=== PATIENT | female | born 2005 | race Caucasian/White ===

== ENCOUNTER 2024-01-03 19:06 | Inpatient (IN) ==
[2024-01-03 20:03] LABS: Basophils # (auto) 0.06 K/uL (0.00-0.20); Basophils % (auto) 0.7 %; Eosinophils # (auto) 0.36 K/uL (0.00-0.50); Eosinophils % (auto) 4.2 %; Hematocrit (blood only) 42.7 % (37.0-47.0); Hemoglobin 14.2 g/dl (12.0-16.0); Immature Granulocytes # (auto) 0.02 K/uL (0.01-0.20); Immature Granulocytes % (auto) 0.2 %; Lymphocytes # (auto) 3.14 K/uL (1.20-3.40); Lymphocytes % (auto) 36.7 %; Mean Corpuscular Hemoglobin 27.5 pg (25.0-34.0); Mean Corpuscular Hgb Conc 33.3 g/dL (32.0-36.0); Mean Corpuscular Volume 82.8 fL (80.0-100.0); Monocytes # (auto) 0.52 K/uL (0.11-0.59); Monocytes % (auto) 6.1 %; Neutrophils # (auto) 4.45 K/uL (1.40-6.50); Neutrophils % (auto) 52.1 %; Platelet Count 350 K/uL (130-400); RDW Standard Deviation 42.5 fL (36.4-46.3); Red Blood Count 5.16 M/uL (4.20-5.40); White Blood Count 8.55 K/ul (4.8-10.8)
[2024-01-03 20:13] LABS: Bilirubin,Total 0.3 mg/dl (0.2-1.0); Calcium 9.3 mg/dl (8.6-10.3); Potassium 3.8 mmol/L (3.5-5.1)
[2024-01-03 20:19] LABS: Albumin Globulin Ratio 1.5 (0.9-2); BUN Creatinine Ratio 17.9 (10-20); Creatinine Clr Calc Pharmacy 73.4 ml/min; Globulin 2.7 gm/dl (2.5-4.0); Total Protein 6.7 gm/dl (6.0-8.3)
[2024-01-03 20:32] LABS: Thyroid Stimulating Hormone 2.645 uIu/ml (0.300-4.500)
[2024-01-03 20:38] LABS: Acetaminophen < 3 ug/ml (10-30); Salicylate < 3.0 mg/dl (3.0-30)
[2024-01-03 22:32] LABS: Appearance Urine Clear (Clear); Bacteria Urine Automated 2+ (None Seen); Bilirubin Urine Negative (Negative); Blood Urine Negative (Negative); Cast Urine Automated 0-2 /lpf (0-2); Color Urine Yellow; Glucose Urine UA Negative (Negative); Ketones Urine Trace (Negative); Leukocyte Esterase Urine 1+ (Negative); Nitrite Urine Negative (Negative); Protein Urine Negative (Negative); RBC Urine Automated 0-2 /hpf (0-2); Specific Gravity Urine 1.023 (1.000-1.030); Urobilinogen Urine Negative (Negative); pH Urine 5.5 (4.5-7.5)
[2024-01-03 22:59] LABS: Amphetamines+Metham, Urine Pos (Neg); Barbiturates, Urine Neg (Neg); Benzodiazepine, Urine Neg (Neg); Cocaine, Urine Neg (Neg); Fentanyl, Urine Neg (Neg); MDMA (Ecstacy), Urine Neg (Neg); Marijuana, Urine Neg (Neg); Methadone, Urine Neg (Neg); Opiate, Urine Neg (Neg); Phencyclidine, Urine Neg (Neg)
[2024-01-04 01:05] LABS: Pregnancy Test, Urine Negative (Negative)
--- NOTE | 2024-01-04 01:07 | Emergency Department Note ---
Impression & Plan Suicidal ideation ED Provider Note CHIEF COMPLAINT: Suicidal ideation HISTORY OF PRESENT ILLNESS: This 18-year-old female patient with past medical history of learning disability presents to the emergency department with complaints of suicidal ideation. The patient apparently made multiple statements this evening to her mother and the optical worker. Patient is a college student at [employer]. She threatened suicide with a knife. When asked if she would be willing to come inpatient she told the optical worker that she would "just kill herself." She requested to go home to her "dorm room where (she) could and nobody would save her." Patient is currently denying any suicidal ideation. She is here under 302. She is apparently followed by psychiatric services at [employer]. REVIEW OF SYSTEMS: A review of systems was performed with positives and pertinent negatives listed in the history of present illness. 10 systems were reviewed and are otherwise negative. ALLERGIES: see below MEDICATIONS: see below PMH: see below SOCIAL HISTORY: see below DDx: Medication effect, mood disorder, substance abuse, situational stressors among others. PHYSICAL EXAM: Vital signs reviewed. General: Well-appearing 18-year-old female, in no significant distress. HEENT: No scleral icterus, PERRLA, neck supple. Moist mucous membranes Cardiovascular: Regular rate and rhythm, no extra sounds. Pulmonary: Clear to auscultation bilaterally, normal work of breathing. Abdomen: Soft, nontender, nondistended, positive bowel sounds. Musculoskeletal: Atraumatic, no peripheral edema. Psychiatric: Denies SI, denies HI Neurologic: Patient awake alert and oriented x 3, speech is clear Skin: Warm, dry, no rash EMERGENCY DEPARTMENT COURSE/MDM: This patient was evaluated and appeared to be in no significant distress. Patient was medically cleared by laboratory work. 302 was signed after the patient declined to sign in voluntarily. Patient was evaluated by 3 S. and accepted for inpatient care. DISPOSITION: Admission Past Med/Surg History Problem List (Updated 01/04/24 @ 01:18 by Emma Morales MD) Suicidal ideation (Acute) ADHD (attention deficit hyperactivity disorder) Mood disorder Social History Smoking Status: Never smoker Preferred Language: Tajik Feels Safe at Home: Yes Gender Identity: Female Results & Data (ED) Vital Signs Vital Signs - 24 hr 01/03/24 19:09 01/03/24 19:45 Temperature 36.8 C Temperature Source Oral Pulse Rate 90 Pulse Rate [Right Brachial] 82 Pulse Rhythm [Right Brachial] Regular Pulse Strength [Right Brachial] Normal Respiratory Rate 15 18 Respiratory Effort / Characteristics Non-Labored Spontaneous Non-Labored Respiratory Depth Normal Normal Respiratory Pattern Regular Regular Blood Pressure 131/87 Blood Pressure [Right Arm] 124/77 Blood Pressure Mean 101 Blood Pressure Mean [Right Arm] 92 Blood Pressure Position [Right Arm] Sitting Pulse Oximetry 98 98 Oxygen Delivery Method Room Air Room Air Sepsis Recent Fever Within 48 Hours No Sepsis New/Unexplained Change in Mental Status N/A Sepsis Action Taken by Nursing No Action Required Home Medications Current Medication List: was personally reviewed by me Laboratory Data Attestation: I reviewed the patient's lab results. 01/03/24 19:42 01/03/24 19:42 Lab Results 01/03/24 01/03/24 Range/Units 19:42 21:48 WBC 8.55 (4.8-10.8) K/ul RBC 5.16 (4.20-5.40) M/uL Hgb 14.2 (12.0-16.0) g/dl Hct 42.7 (37.0-47.0) % MCV 82.8 (80.0-100.0) fL MCH 27.5 (25.0-34.0) pg MCHC 33.3 (32.0-36.0) g/dL RDW Std Deviation 42.5 (36.4-46.3) fL RDW Coeff of Nixon 14.0 (11.5-14.5) % Plt Count 350 (130-400) K/uL MPV 9.0 L (9.4-12.4) fL Immature Gran % (Auto) 0.2 % Neut % (Auto) 52.1 % Lymph % (Auto) 36.7 % Morrill % (Auto) 6.1 % Eos % (Auto) 4.2 % Baso % (Auto) 0.7 % Neut # (Auto) 4.45 (1.40-6.50) K/uL Lymph # (Auto) 3.14 (1.20-3.40) K/uL Morrill # (Auto) 0.52 (0.11-0.59) K/uL Eos # (Auto) 0.36 (0.00-0.50) K/uL Baso # (Auto) 0.06 (0.00-0.20) K/uL Immature Gran # (Auto) 0.02 (0.01-0.20) K/uL Sodium 139 (136-145) mmol/L Potassium 3.8 (3.5-5.1) mmol/L Chloride 107 (98-107) mmol/L Carbon Dioxide 24 (21-32) mmol/L Anion Gap 8 (3-11) BUN 15 (6-23) mg/dl Creatinine 0.84 (0.6-1.2) mg/dl Est Cr Clr Drug Dosing 73.4 ml/min eGFR 101.96 BUN/Creatinine Ratio 17.9 (10-20) Glucose 81 (70-99(Fasting)) mg/dl Calcium 9.3 (8.6-10.3) mg/dl Total Bilirubin 0.3 (0.2-1.0) mg/dl AST 17 (13-39) U/L ALT 14 (7-52) U/L Alkaline Phosphatase 63 (34-104) U/L Total Protein 6.7 (6.0-8.3) gm/dl Albumin 4.0 (3.4-5.0) gm/dl Globulin 2.7 (2.5-4.0) gm/dl Albumin/Globulin Ratio 1.5 (0.9-2) TSH 2.645 (0.300-4.500) uIu/ml Urine Color Yellow Urine Appearance Clear (Clear) Urine pH 5.5 (4.5-7.5) Ur Specific [place] 1.023 (1.000-1.030) Urine Protein Negative (Negative) Urine Glucose (UA) Negative (Negative) Urine Ketones Trace H (Negative) Urine Blood Negative (Negative) Urine Nitrite Negative (Negative) Urine Bilirubin Negative (Negative) Urine Urobilinogen Negative (Negative) Ur Leukocyte Esterase 1+ H (Negative) Urine WBC (Auto) 11-20 H (0-5) /hpf Urine RBC (Auto) 0-2 (0-2) /hpf U Hyaline Cast (Auto) 0-2 (0-2) /lpf U Epithel Cells (Auto) 6-10 H (0-2) /hpf Urine Bacteria (Auto) 2+ H (None Seen) Salicylates < 3.0 L (3.0-30) mg/dl Urine Opiates Screen Neg (Neg) Ur Methadone, Qual Neg (Neg) Urine Fentanyl Screen Neg (Neg) Acetaminophen < 3 L (10-30) ug/ml Urine Barbiturates Neg (Neg) Ur Phencyclidine (PCP) Neg (Neg) U Amphetamin/Meth Scrn Pos H (Neg) MDMA (Ecstasy) Screen Neg (Neg) U Benzodiazepines Scrn Neg (Neg) Ur Cocaine Metabolite Neg (Neg) U Marijuana (THC) Screen Neg (Neg) Ethyl Alcohol mg/dL < 10.0 (<10.0) mg/dl SARS-CoV-2 (PCR) NEGATIVE (Negative) Discharge Plan Visit Data Chief Complaint: Mental Health Evaluation Stated Complaint: 302 ED Provider: Emma Morales Discharge Problem: Suicidal ideation Forms Stand Alone Forms: [facility], Suicide Prevention Resources Prescriptions Prescriptions: No Action norgestimate-ethinyl estradiol [Sprintec (28)] 0.25-35 mg-mcg tablet 1 tab PO DAILY dextroamphetamine-amphetamine 20 mg capsule,extended release 24hr 20 mg PO DAILY escitalopram oxalate 20 mg tablet 20 mg PO DAILY Referrals Referrals: PCP,NO [Primary Care Provider] -
[2024-01-04] MEDS ORDERED: MAGNESIUM HYDROXIDE SUSP 30 ML UDC PO PRN (01:48)
[2024-01-04] MEDS ORDERED: SODIUM CHLORIDE 0.65% NA SOLN 45 ML (OCEAN) PRN (01:48)
[2024-01-04] MEDS ORDERED: BISMUTH SUBSALICYLATE 262 MG CHEW PO PRN (01:48)
[2024-01-04] MEDS ORDERED: ACETAMINOPHEN 325 MG TAB PO PRN (01:48)
[2024-01-04] MEDS ORDERED: hydrOXYzine HCl 25 MG TAB PO PRN ×2 (01:48)
[2024-01-04] MEDS ORDERED: ALUMINUM/MAGNESIUM SUSP 30 ML UDC PO PRN (01:48)
[2024-01-04] MEDS: ESCITALOPRAM OXALATE 10 MG TAB PO SCH (08:32)
--- NOTE | 2024-01-04 14:07 | History & Physical ---
Date of Service January 04, 2024 Impression / Recommendations Impression JYOTI MONTANA is a domiciled with roommate, single, student 18-year-old female history of ADHD, anxiety who presents after her mother brought her to crisis support for grabbing a knife and threatening to commit suicide. She was admitted on 01/04/24 01:34 on a 302 involuntary commitment for suicidal ideation and gesture. Presentation consistent with generalized anxiety disorder with possible panic attacks, social anxiety disorder, cluster B personality disorder, and ADHD. She presents recent suicidal ideation and gesture likely as a response of distressing anxiety and poor coping skills. She would likely benefit with distress tolerance skills and continued adherence to recently initiated antidepressant medication. She presents a lack of self-esteem impacting social functioning and would benefit from engagement in cognitive behavioral therapy to challenge thought distortions. Labs reviewed: CBC, CMP, TSH unremarkable. UDS positive for amphetamines and patient is prescribed Adderall for ADHD. Blood alcohol undetectable on admission. UA positive for leukocyte esterase and WBCs however patient denies UTI symptoms and recommended increase hydration. Given recent suicidal ideation, safety concerns will continue to monitor mood and behaviors. Recommend to continue home Lexapro and to hold home Adderall which can be resumed after discharge. Patient provided handout of automatic thoughts and will clarify cluster B symptomology. Overall, I spent a total of 70 minutes with this case including review of chart records, nursing report, review of lab work, direct evaluation of the patient at bedside, counseling the patient, multidisciplinary team meeting, orders, gathering collateral from family and documentation in the electronic health record. 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 The patient will participate in group, recreational, and milieu therapies and will be offered additional individual and family sessions as clinically appropriate. -Continue home escitalopram 20mg daily -Hold home Adderall IR 20mg daily -Borderline Personality Screener Inventory Assets Strengths: social supports, intelligent Needs: improved self esteem, improved coping skills Suicide Risk Level Suicide Risk Level: Moderate (q15 min suicide checks) Risk Factors Assessment Male: No : No Do You Have Access To A Gun?: No Health Problems: Yes Mental Health Diagnoses: Yes Substance Use Disorders: No Previous Attempt: No Family History of Suicide: No Previous Psychiatric Hospitalization: No Hopelessness: No Protective Factors Assessment Moravian Beliefs: No : No Responsible for Young Children: No Employed: No Stable Relationships: Yes Supportive Family: Yes Good Rapport with Provider: Yes Absence of Any Risk Factors Above: No Psychiatric History Identifying Data JYOTI MONTANA is a domiciled with roommate, single, student 18-year-old female history of ADHD, anxiety who presents after her mother brought her to crisis support for grabbing a knife and threatening to commit suicide. She was admitted on 01/04/24 01:34 on a 302 involuntary commitment for suicidal ideation and gesture. Chief Complaint "Be more positive when things get bad" History of Present Illness Patient reports roommate and RA have been yelling at her. They share a bathroom and she did not clean it and that her roommate is a germ phobia. Also reports stressors of leaving home and being isolated and this has been difficult. Says that she complains of poor self-esteem and cannot express herself to her mother. Mother often brings her back home while she wants to remain independent. Says recently her anxiety has worsened and that she got a knife to get her brother's attention. She denies intention to use the knife. Reports anxiety has been worsening and has had intermittent SI in the past. She reports worries about different topics. When she becomes anxious she has episodes of her palm sweating, shortness of breath, increased heart rate, clenched jaw and fist and mental feelings of being powerless. Has been occurring 1-2 times daily and has been worse after COVID due to isolation and going back to in person schooling. Endorses fair energy, sleep. Endorses depressed mood, change in appetite, excessive guilt, increased fatigue, concentration problems, increased impulsivity, increased irritability, avoidance of public places, and excessive worry. Reports poor concentration due to difficulties with motivation. Feels hopeful for the future and is future oriented to get back to her class work. She denies current suicidal ideation. Reports future goals of improved mood and less extreme anxiety. Denies fears of abandonment. Denies problems in relationships. Complains of feelings of emptiness and trouble with identity formation. Denies having recurrent nightmares. Often worried about self judgment in public makes comparisons about her physical appearance to others. Reports having low self- esteem since teenage years due to what she seen on TV. Denies judgment from family or peers growing up. Grew up in [place]. Parents 8 years of age denies having negative memories about this. Feels both family and mother are supportive. He denies emotional, physical, sexual abuse. Started Lexapro and Adderall 1 month ago and Lexapro dose was recently increased from 10 mg to 20 mg yesterday. Reports her anxiety and concentration have improved since being on medication. She denies having dysuria or pain on urination. Reports having visual processing issues where she has conflicting images on each eye and this causes difficulties with spatial awareness, trouble reading people's affect. Uses verbal learning tools to cope. Social history: [employer] freshman. Lives in dorms with roommate. Mother lives in [place]. Follow-up through [facility]. Has not started counseling yet but has appointment scheduled. Born prematurely at 25 weeks. Last menstrual period 1 week ago and currently on control. Exercises 2 times a week doing yoga. History of depression and anxiety in the father; unknown treatment. Grew up in [place]. Not sexually active and unsure sexual orientation. No legal problems. Past Psychiatric History Current Psychiatric Diagnosis: ADHD, Depression, Anxiety Do You Have Access To A Gun?: No History of Previous Suicide Attempt: No Allergies Allergy/AdvReac Type Severity Reaction Status Date / Time No Known Allergies Allergy Unverified 01/04/24 01:50 Home Medications Medication Instructions Recorded Confirmed Type dextroamphetamine-amphetamine ER 20 mg PO DAILY 01/04/24 01/04/24 History 20 mg 24hr capsule,extend release escitalopram oxalate 20 mg tablet 20 mg PO DAILY 01/04/24 01/04/24 History norgestimate 0.25 mg-ethinyl 1 tab PO DAILY 01/04/24 01/04/24 History estradiol 35 mcg tablet (Sprintec (28)) Family History Family History of: Depression and Anxiety Alcohol History Hx of Alcohol Use Over the Past 12 Months: No AUDIT Total Score: 0 Smoking Use Have You Smoked or Used Tobacco Products in the Last 30 Days: No Smoking Status: Never smoker Substance History Hx of Prescription Med Misuse Over the Past 12 Months: No Hx of Over the Counter Med Misuse Over the Past 12 Months: No Hx of Inhalent Misuse Over the Past 12 Months: No Hx of Organic Substance Use Over the Past 12 Months: No Hx of Illegal Substances/Street Drug Use Over Past 12 Months: No Problems as a Result of Past Substance Use: None Identified Personal History Living Arrangements: Apartment Highest Grade Completed: College Highest Grade Completed Comment: Currently Freshmen at [employer] Marital Status: Single Number Of Children: 0 Beliefs That Will Affect Care: None Patient History Social History Smoking Status: Never smoker Preferred Language: Omani Communication Ability: Effective Certified Prosthetist/Orthotist Required: No Beliefs That Will Affect Care: None Feels Safe at Home: Yes Gender Identity: Female Assistive Devices: Glasses Physical Exam Mental Examination: Appearance: Well Groomed Eye Contact: Fleeting Contact Motor Behavior: Unremarkable Speech: Delayed Mood: Anxious Affect: Constricted and Withdrawn Thought Process: Intact and Goal Oriented Hallucinations: None Insight: Poor (to limited) Judgement: Poor Vital Signs (Past 24 Hours): Last Vital Signs Temp 36.8 C 01/04/24 06:30 Pulse 105 H 01/04/24 06:30 Resp 16 01/04/24 06:30 BP 105/72 01/04/24 06:30 Pulse Ox 99 01/04/24 02:12 O2 Del Method Room Air 01/04/24 02:12 Exam Statement: A physical exam was performed in the ED for the purposes of medical clearance. I accept that physical as correct and adequate for the purposes of the inpatient physical exam. Results & Data ([facility]) Laboratory Results Laboratory Results - last 24 hr 01/03/24 01/03/24 19:42 21:48 WBC 8.55 RBC 5.16 Hgb 14.2 Hct 42.7 MCV 82.8 MCH 27.5 MCHC 33.3 RDW Std Deviation 42.5 RDW Coeff of Nixon 14.0 Plt Count 350 MPV 9.0 L Immature Gran % (Auto) 0.2 Neut % (Auto) 52.1 Lymph % (Auto) 36.7 Johnson % (Auto) 6.1 Eos % (Auto) 4.2 Baso % (Auto) 0.7 Neut # (Auto) 4.45 Lymph # (Auto) 3.14 Johnson # (Auto) 0.52 Eos # (Auto) 0.36 Baso # (Auto) 0.06 Immature Gran # (Auto) 0.02 Sodium 139 Potassium 3.8 Chloride 107 Carbon Dioxide 24 Anion Gap 8 BUN 15 Creatinine 0.84 Est Cr Clr Drug Dosing 73.4 eGFR 101.96 BUN/Creatinine Ratio 17.9 Glucose 81 Calcium 9.3 Total Bilirubin 0.3 AST 17 ALT 14 Alkaline Phosphatase 63 Total Protein 6.7 Albumin 4.0 Globulin 2.7 Albumin/Globulin Ratio 1.5 TSH 2.645 Urine Color Yellow Urine Appearance Clear Urine pH 5.5 Ur Specific [place] 1.023 Urine Protein Negative Urine Glucose (UA) Negative Urine Ketones Trace H Urine Blood Negative Urine Nitrite Negative Urine Bilirubin Negative Urine Urobilinogen Negative Ur Leukocyte Esterase 1+ H Urine WBC (Auto) 11-20 H Urine RBC (Auto) 0-2 U Hyaline Cast (Auto) 0-2 U Epithel Cells (Auto) 6-10 H Urine Bacteria (Auto) 2+ H Urine Test Negative Salicylates < 3.0 L Urine Opiates Screen Neg Ur Methadone, Qual Neg Urine Fentanyl Screen Neg Acetaminophen < 3 L Urine Barbiturates Neg Ur Phencyclidine (PCP) Neg U Amphetamines Confirm Pending U Amphetamin/Meth Scrn Pos H U Methamphetamin Confrm Pending MDMA (Ecstasy) Screen Neg U Benzodiazepines Scrn Neg Ur Cocaine Metabolite Neg U Marijuana (THC) Screen Neg Drug Screen Comment Pending Ethyl Alcohol mg/dL < 10.0 SARS-CoV-2 (PCR) NEGATIVE Current Inpatient Medications Current Inpatient Medications: Current Inpatient Medications Acetaminophen (Acetaminophen 325 Mg Tab) 650 mg PO Q4H PRN PRN Reason: Headache or Minor Fever Stop: 02/03/24 01:47 Al Hydrox/Mg Hydrox/Simethicone (Aluminum/Magnesium Susp 30 Ml Udc) 30 ml PO Q4H PRN PRN Reason: GI Upset Stop: 02/03/24 01:47 Bismuth Subsalicylate (Bismuth Subsalicylate 262 Mg Chew) 2 tab PO Q30M PRN PRN Reason: Loose Stool/Diarrhea Stop: 02/03/24 01:47 Escitalopram Oxalate (Escitalopram Oxalate 20 Mg Tab) 20 mg PO QAM ANGELA Stop: 02/04/24 08:59 Hydroxyzine HCl (Hydroxyzine Hcl 25 Mg Tab) 50 mg PO HSZ PRN PRN Reason: Insomnia Stop: 02/03/24 01:47 Hydroxyzine HCl (Hydroxyzine Hcl 25 Mg Tab) 25 mg PO Q4H PRN PRN Reason: Anxiety Stop: 02/03/24 01:47 Magnesium Hydroxide (Magnesium Hydroxide Susp 30 Ml Udc) 30 ml PO DAILY PRN PRN Reason: Constipation Stop: 02/03/24 01:47 Sodium Chloride (Sodium Chloride 0.65% Na Soln 45 Ml ([place])) 1 - 2 sprays NA PRN PRN PRN Reason: Nasal Dryness/Congestion Stop: 02/03/24 01:47
[2024-01-04] MEDS: NORGESTIMATE/ETHINYL ESTRAD 0.25/0.035MG DSPK PO SCH (16:48)
[2024-01-05] MEDS: ESCITALOPRAM OXALATE 20 MG TAB PO SCH (08:46)
--- NOTE | 2024-01-05 10:52 | Psychiatric Progress Note ---
Date of Service January 05, 2024 Impression / Recommendations Impression JYOTI MONTANA is a domiciled with roommate, single, student 18-year-old female history of ADHD, anxiety who presents after her mother brought her to crisis support for grabbing a knife and threatening to commit suicide. She was admitted on 01/04/24 01:34 on a 302 involuntary commitment for suicidal ideation and gesture. A: Patient presents stable mood and presents a history of negative core beliefs with poor self esteem and automatic negative thinking which can be addressed in outpatient counseling. Has been tolerating her home medications well. She may benefit from an intensive outpatient program. Patient is goal directed towards discharge. Overall, I spent a total of 30 minutes with this case including review of chart records, nursing report, review of lab work, direct evaluation of the patient at bedside, counseling the patient, multidisciplinary team meeting, orders, and documentation in the electronic health record. 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 01/04/2024: The patient was admitted to the [facility] ([facility]) on q15 min checks (behavioral with suicide precautions) for safety. The patient will participate in group, recreational, and milieu therapies and will be offered additional individual and family sessions as clinically appropriate. -Continue home escitalopram 20mg daily -Hold home Adderall IR 20mg daily -Borderline Personality Screener Inventory Assets Strengths: social supports, intelligent Needs: improved self esteem, improved coping skills Suicide Risk Level Suicide Risk Level: Moderate (q15 min suicide checks) Risk Factors Assessment Male: No : No Do You Have Access To A Gun?: No Health Problems: Yes Mental Health Diagnoses: Yes Substance Use Disorders: No Previous Attempt: No Family History of Suicide: No Previous Psychiatric Hospitalization: No Hopelessness: No Protective Factors Assessment Episcopalian Beliefs: No : No Responsible for Young Children: No Employed: No Stable Relationships: Yes Supportive Family: Yes Good Rapport with Provider: Yes Absence of Any Risk Factors Above: No Interval History Identifying Information JYOTI MONTANA is a domiciled with roommate, single, student 18-year-old female history of ADHD, anxiety who presents after her mother brought her to crisis support for grabbing a knife and threatening to commit suicide. She was admitted on 01/04/24 01:34 on a 302 involuntary commitment for suicidal ideation and gesture. Chief Complaint "Good" Review of Systems Sleep Information Total Hours of Sleep: 7.30 Sleep Comments: No HS medications Meal Information Percent Meal Consumed - Breakfast: 100 Percent Meal Consumed - Lunch: 100 Percent Meal Consumed - Dinner: 90 Subjective Subjective Patient was seen & assessed and interval progress reviewed with treatment team nursing and social work Patient rates mood 9 out of 10 and feels optimistic. Says she slept well. Considering taking the semester off and "focusing on therapy". She denies SI. She reports having trouble with relationships with mother, problems with identity, making desperate efforts to avoid feeling abandoned, some dissociation, and extreme moodiness; all of this began after recent incident with her roommate at school who was not present before. Reports chronic feelings of lack of identity and distrust from other people due to believing they are secretly judging her. Reports history of poor self-esteem. Endorses automatic negative thoughts such as all or none thinking, personalizing often blaming self for other people's feelings and mood, emotional reasoning, mind reading often believing others are judging her. She was counseled about the importance of CBT and distress tolerance skills for improved self-esteem and coping with anxiety respectively. Physical Exam Mental Examination Appearance: Well Groomed Eye Contact: Fleeting Contact Motor Behavior: Unremarkable Speech: Delayed Mood: Anxious Affect: Constricted and Withdrawn Thought Process: Intact and Goal Oriented Hallucinations: None Insight: Poor (to limited) Judgement: Poor Vital Signs (Past 24 Hours) Last Vital Signs Temp 36.7 C 01/05/24 06:39 Pulse 112 H 01/05/24 06:39 Resp 16 01/05/24 06:39 BP 115/84 01/05/24 06:39 Pulse Ox 99 01/04/24 02:12 O2 Del Method Room Air 01/04/24 02:12 Results & Data ([facility]) Current Inpatient Medications Current Inpatient Medications: Current Inpatient Medications Acetaminophen (Acetaminophen 325 Mg Tab) 650 mg PO Q4H PRN PRN Reason: Headache or Minor Fever Stop: 02/03/24 01:47 Al Hydrox/Mg Hydrox/Simethicone (Aluminum/Magnesium Susp 30 Ml Udc) 30 ml PO Q4H PRN PRN Reason: GI Upset Stop: 02/03/24 01:47 Bismuth Subsalicylate (Bismuth Subsalicylate 262 Mg Chew) 2 tab PO Q30M PRN PRN Reason: Loose Stool/Diarrhea Stop: 02/03/24 01:47 Escitalopram Oxalate (Escitalopram Oxalate 20 Mg Tab) 20 mg PO QAM ANGELA Stop: 02/04/24 08:59 Last Admin: 01/05/24 08:46 Dose: 20 mg Hydroxyzine HCl (Hydroxyzine Hcl 25 Mg Tab) 50 mg PO HSZ PRN PRN Reason: Insomnia Stop: 02/03/24 01:47 Hydroxyzine HCl (Hydroxyzine Hcl 25 Mg Tab) 25 mg PO Q4H PRN PRN Reason: Anxiety Stop: 02/03/24 01:47 Magnesium Hydroxide (Magnesium Hydroxide Susp 30 Ml Udc) 30 ml PO DAILY PRN PRN Reason: Constipation Stop: 02/03/24 01:47 Norgestimate (Norgestimate/Ethinyl Estrad 0.25/0.035mg Dspk) 1 tab PO DAILY ANGELA; Protocol Stop: 02/03/24 15:14 Last Admin: 01/05/24 08:47 Dose: 1 tab Sodium Chloride (Sodium Chloride 0.65% Na Soln 45 Ml (Spink)) 1 - 2 sprays NA PRN PRN PRN Reason: Nasal Dryness/Congestion Stop: 02/03/24 01:47 Mental Health & Subst Abuse Tx Psychiatrist Name of Psychiatrist: Dr. Lopez @ [facility] Psychiatrist's Date Of Appointment With Psychiatric Provider: 01/27/24 Time of Appointment with Psychiatrist: 1:30pm Therapist Name of Therapist: Anu Soler at [facility] Therapist's Date of Therapist Appointment: 01/07/24 Time of Therapist Appointment: 11:00am Thread Checker Name of Thread Checker: Shi Gaitan Case Management Appointment Comment: Intake scheduled for 01/05 Post Discharge Appointments Primary Care Physician Name Of Family Doctor/PCP: Doctor in [place]
--- NOTE | 2024-01-06 09:13 | Discharge Summary ---
Date of Service January 06, 2024 History of Present Illness Patient reports roommate and RA have been yelling at her. They share a bathroom and she did not clean it and that her roommate is a germ phobia. Also reports stressors of leaving home and being isolated and this has been difficult. Says that she complains of poor self-esteem and cannot express herself to her mother. Mother often brings her back home while she wants to remain independent. Says recently her anxiety has worsened and that she got a knife to get her brother's attention. She denies intention to use the knife. Reports anxiety has been worsening and has had intermittent SI in the past. She reports worries about different topics. When she becomes anxious she has episodes of her palm sweating, shortness of breath, increased heart rate, clenched jaw and fist and mental feelings of being powerless. Has been occurring 1-2 times daily and has been worse after COVID due to isolation and going back to in person schooling. Endorses fair energy, sleep. Endorses depressed mood, change in appetite, excessive guilt, increased fatigue, concentration problems, increased impulsivity, increased irritability, avoidance of public places, and excessive worry. Reports poor concentration due to difficulties with motivation. Feels hopeful for the future and is future oriented to get back to her class work. She denies current suicidal ideation. Reports future goals of improved mood and less extreme anxiety. Denies fears of abandonment. Denies problems in relationships. Complains of feelings of emptiness and trouble with identity formation. Denies having recurrent nightmares. Often worried about self judgment in public makes comparisons about her physical appearance to others. Reports having low self- esteem since teenage years due to what she seen on TV. Denies judgment from family or peers growing up. Grew up in [place]. Parents 8 years of age denies having negative memories about this. Feels both family and mother are supportive. He denies emotional, physical, sexual abuse. Started Lexapro and Adderall 1 month ago and Lexapro dose was recently increased from 10 mg to 20 mg yesterday. Reports her anxiety and concentration have improved since being on medication. She denies having dysuria or pain on urination. Reports having visual processing issues where she has conflicting images on each eye and this causes difficulties with spatial awareness, trouble reading people's affect. Uses verbal learning tools to cope. Social history: [employer] freshman. Lives in dorms with roommate. Mother lives in [place]. Follow-up through [facility]. Has not started counseling yet but has appointment scheduled. Born prematurely at 25 weeks. Last menstrual period 1 week ago and currently on control. Exercises 2 times a week doing yoga. History of depression and anxiety in the father; unknown treatment. Grew up in [place]. Not sexually active and unsure sexual orientation. No legal problems. Physical Exam Mental Examination Appearance: Well Groomed Eye Contact: Fleeting Contact (visual processing problem) Motor Behavior: Unremarkable Speech: Delayed Mood: Euthymic and Calm Affect: Appropriate and Congruent Thought Process: Intact and Goal Oriented Hallucinations: None Insight: Poor (to limited) Judgement: Fair (to limited) Vital Signs (Past 24 Hours) Last Vital Signs Temp 36.6 C 01/06/24 06:37 Pulse 144 H 01/06/24 06:38 Resp 16 01/06/24 06:37 BP 101/65 01/06/24 06:38 Pulse Ox 99 01/04/24 02:12 O2 Del Method Room Air 01/04/24 02:12 Principal Diagnosis Generalized anxiety disorder with panic attacks: Psychiatric Data See daily stay summary. In short, safety was maintained and the patient was cooperative with care. Medication changes included continuing home Escitalopram 20mg (recently inc outpatient) and they tolerated this well. A family session was decline and safety plan was completed prior to discharge. Discussed care plan with parents and patient at length. Recommended IOP for discharge for distress tolerance skills, social skills training, assertiveness training, CBT to address cognitive distortions and poor self esteem. Patient denied SI through hospitalization and presented stable behavior. Goal directed towards returning to school work. Day of Discharge Assessment Today the patient voices readiness for discharge. They note improvement in mood and deny thoughts to harm self or others. Thoughts remain organized and they are improved from admission. There is no evidence of psychosis. They agree to take mediations as prescribed and keep follow-up appointments. They are stable for discharge to outpatient level of care. Transition of Care Transition Of Care Record: was reviewed with the patient Advance Directives Advance Directives Information Provided: Yes Advance Directives: No Mental Health Advance Directive: No Advance Directives on File: No Living Will: No Power of Team Leader: No Advance Directives Reason:: Declines as Mental Health Visit. Risk Factors Assessment Male: No : No Do You Have Access To A Gun?: No Health Problems: Yes Mental Health Diagnoses: Yes Substance Use Disorders: No Previous Attempt: No Family History of Suicide: No Previous Psychiatric Hospitalization: No Hopelessness: No Protective Factors Assessment Episcopalian Beliefs: No : No Responsible for Young Children: No Employed: No Stable Relationships: Yes Supportive Family: Yes Good Rapport with Provider: Yes Absence of Any Risk Factors Above: No Discharge Data Lab Results 01/03/24 01/03/24 19:42 21:48 WBC 8.55 RBC 5.16 Hgb 14.2 Hct 42.7 MCV 82.8 MCH 27.5 MCHC 33.3 RDW Std Deviation 42.5 RDW Coeff of Nixon 14.0 Plt Count 350 MPV 9.0 L Immature Gran % (Auto) 0.2 Neut % (Auto) 52.1 Lymph % (Auto) 36.7 Norton % (Auto) 6.1 Eos % (Auto) 4.2 Baso % (Auto) 0.7 Neut # (Auto) 4.45 Lymph # (Auto) 3.14 Norton # (Auto) 0.52 Eos # (Auto) 0.36 Baso # (Auto) 0.06 Immature Gran # (Auto) 0.02 Sodium 139 Potassium 3.8 Chloride 107 Carbon Dioxide 24 Anion Gap 8 BUN 15 Creatinine 0.84 Est Cr Clr Drug Dosing 73.4 eGFR 101.96 BUN/Creatinine Ratio 17.9 Glucose 81 Calcium 9.3 Total Bilirubin 0.3 AST 17 ALT 14 Alkaline Phosphatase 63 Total Protein 6.7 Albumin 4.0 Globulin 2.7 Albumin/Globulin Ratio 1.5 TSH 2.645 Urine Color Yellow Urine Appearance Clear Urine pH 5.5 Ur Specific [place] 1.023 Urine Protein Negative Urine Glucose (UA) Negative Urine Ketones Trace H Urine Blood Negative Urine Nitrite Negative Urine Bilirubin Negative Urine Urobilinogen Negative Ur Leukocyte Esterase 1+ H Urine WBC (Auto) 11-20 H Urine RBC (Auto) 0-2 U Hyaline Cast (Auto) 0-2 U Epithel Cells (Auto) 6-10 H Urine Bacteria (Auto) 2+ H Urine Test Negative Salicylates < 3.0 L Urine Opiates Screen Neg Ur Methadone, Qual Neg Urine Fentanyl Screen Neg Acetaminophen < 3 L Urine Barbiturates Neg Ur Phencyclidine (PCP) Neg U Amphetamin/Meth Scrn Pos H MDMA (Ecstasy) Screen Neg U Benzodiazepines Scrn Neg Ur Cocaine Metabolite Neg U Marijuana (THC) Screen Neg Ethyl Alcohol mg/dL < 10.0 SARS-CoV-2 (PCR) NEGATIVE Hospital Course (1) Generalized anxiety disorder with panic attacks: (2) Cluster B personality disorder: (3) Social anxiety disorder: (4) ADHD (attention deficit hyperactivity disorder): (5) Functional vision problem: (6) 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 01/04/2024: The patient was admitted to the [facility] ([facility]) on q15 min checks (behavioral with suicide precautions) for safety. The patient will participate in group, recreational, and milieu therapies and will be offered additional individual and family sessions as clinically appropriate. -Continue home escitalopram 20mg daily -Hold home Adderall IR 20mg daily -Borderline Personality Screener Mental Health & Subst Abuse Tx Psychiatrist Name of Psychiatrist: Dr. Lopez @ [facility] Psychiatrist's Date Of Appointment With Psychiatric Provider: 01/27/24 Time of Appointment with Psychiatrist: 1:30pm Therapist Name of Therapist: Anu Soler at [facility] Therapist's Date of Therapist Appointment: 01/07/24 Time of Therapist Appointment: 11:00am Therapy Appointment Comment: Anu will help you with academic adjustment. Bias Binding Folder Name of Bias Binding Folder: Shi Gaitan (Dhruv, Learning Technologist) Phone Number for Bias Binding Folder: [phone] Date of Appointment with Bias Binding Folder: 01/06/24 Time of Appointment with Bias Binding Folder: 3:30pm Case Management Appointment Comment: Dhruv will call you to schedule an intake for Case Management assignment Post Discharge Appointments Primary Care Physician Name Of Family Doctor/PCP: PCP Annamaria Yu ([facility]) Primary Care Date of Future Appointment with PCP: 01/15/24 Time of Appointment with PCP: 10:45am Provider Appointment Comment: new pt. appt. bring insurance card Other #1: Name of Aftercare Appointment: Anu Soler at [facility] Phone Number of Aftercare Appointment: [phone] Date of Aftercare Appointment: 01/07/24 Time of Aftercare Appointment: 11AM Aftercare Appointment Comment: Anu will help you with academic adjustment. 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: Activity: Resume your previous activity Non-emergency contact: Primary Care Provider and Psychiatrist Call non-emergency contact if: you have any medication questions and your symptoms worsen Follow-up/Referrals: PCP,NO [Primary Care Provider] - Diet: Regular Addtl Attending Provider Instructions: -Continue home escitalopram 20mg -Resume Adderall IR 20mg daily -Consider intensive outpatient program through [facility] ([email or web address] -Engage in Cognitive Behavioral Therapy Pending Studies at Discharge: No Stand-Alone Forms: My [facility] [employer] Smoking Cessation Medications and DC Order Prescriptions: Continued norgestimate-ethinyl estradiol [Sprintec (28)] 0.25-35 mg-mcg tablet 1 tab PO DAILY dextroamphetamine-amphetamine 20 mg capsule,extended release 24hr 20 mg PO DAILY escitalopram oxalate 20 mg tablet 20 mg PO DAILY Discharge Orders: Discharge Order (Routine); Ordered 01/06/24 Ordered By: Nelson Trinidad Admission Data Admit Date/Time: 01/04/24 01:34 Attending Provider: Nelson Trinidad Admit Provider: Nelson Trinidad Primary Care Provider: PCP,NO Other Interventions: Discharge Summary Assessment (RN) Last Done: 01/06/24 11:13 Coding [place] [address] D/C day mgmt 30 min or < Patient Type Established History Expanded Problem Focused Exam Expanded Problem Focused Medical Decision Making Moderate Complexity Diagnoses Generalized anxiety disorder with panic attacks F41.1; F41.0 Cluster B personality disorder F60.89 Social anxiety disorder F40.10 ADHD (attention deficit hyperactivity disorder) F90.9 Functional vision problem H54.7 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
[2024-01-06 13:57] LABS: Amphetamine Urine, Confirm >15000 ng/mL (<250); Methamphetamine, Ur Confirm NEGATIVE ng/mL (<250)
== END 2024-01-06 14:58 | disposition home or self-care (01) | DRG 880 ==
LOC: ED 19:06 → 3S 01-04 01:34